=== PATIENT | male | born 1995 | race Caucasian/White ===

== ENCOUNTER 2016-12-09 23:12 | Emergency (ER) | payer SELFPAY ==
[~2016-12-09] VITALS: Ht 182.9 cm; Wt 65.8 kg
== END 2016-12-10 03:40 | disposition short-term general hospital (02) ==
LOC: ER 23:15
DX: R07.9 Chest pain, unspecified (principal); F12.20 Cannabis dependence, uncomplicated; F17.210 Nicotine dependence, cigarettes, uncomplicated; Z88.1 Allergy status to other antibiotic agents
CPT/HCPCS: G0477; J2060